=== PATIENT | female | born 1985 | race Caucasian/White ===

== ENCOUNTER 2024-06-26 09:14 | Inpatient (IN) | payer OTHER ==
[2024-06-26] MEDS: SODIUM CHLORIDE 0.9% 500 ML INFUS.BAG IV ONE (09:50)
[2024-06-26] MEDS ORDERED: ACETAMINOPHEN INJECTION 100 ML ONE ×2 (09:56→18:57)
[2024-06-26] MEDS: ACETAMINOPHEN 1000 MG/100 ML BAG IVPB ONE ×2 (09:59→19:04)
[2024-06-26 10:09] LABS: INR 1.05 (0.83-1.09); PROTHROMBIN TIME (PATIENT) 11.9 SEC (9.7-13.0)
[2024-06-26 10:11] LABS: ACTIVATED PTT 26.8 SECONDS (25.2-36.5)
[2024-06-26 10:22] LABS: HEMATOCRIT 38.5 % (32.4-45.2); HEMOGLOBIN 12.7 G/dL (10.7-15.3); MCH 29.9 pg (25.7-33.7); MCHC 32.9 g/dl (32.0-36.0); MEAN CELL VOLUME 90.7 fl (80-96); RBC 4.24 10^6/uL (3.60-5.2)
[2024-06-26 10:29] LABS: ALBUMIN 3.8 g/dl (3.4-5.0); BILIRUBIN,TOTAL 0.6 mg/dl (0.2-1); CALCIUM 9.2 mg/dl (8.5-10.1); CREATININE 0.7 mg/dl (0.6-1.3); POTASSIUM 3.5 mmol/L (3.5-5.1); TOT PROT 6.7 g/dl (6.4-8.2)
[2024-06-26 10:40] LABS: PLATELET ESTIMATE ADEQUATE
[2024-06-26 13:16] LABS: HEMATOCRIT 36.7 % (32.4-45.2); MCH 29.7 pg (25.7-33.7); MCHC 32.7 g/dl (32.0-36.0); MEAN CELL VOLUME 90.9 fl (80-96); MEAN PLT VOLUME 7.7 fl (7.5-11.1); PLATELET COUNT 205.6 10^3/uL (134-434); RBC 4.04 10^6/uL (3.60-5.2); RDW 13.6 % (11.6-15.6); WHITE BLOOD COUNT 11.2 10^3/uL (4.0-10.8)
[2024-06-26] MEDS: RHO(D) IMMUNE GLOBULIN 1,500 UNIT DISP.SYRIN IM ONE (14:34)
[2024-06-26] MEDS ORDERED: BUPIVACAINE HCL/PF 0.5% (5MG/ML) 10 ML VIAL ONE (15:16)
[2024-06-26] MEDS ORDERED: MIDAZOLAM HCL 2 MG/2 ML SINGLE DOSE VIAL ONE (16:30)
[2024-06-26] MEDS ORDERED: ROCURONIUM BROMIDE 50 MG/5 ML SYRINGE ONE (16:30)
[2024-06-26] MEDS ORDERED: PROPOFOL 20 ML ONE (16:30)
[2024-06-26] MEDS ORDERED: SUCCINYLCHOLINE CHLORIDE 200 MG/10 ML SYRINGE ONE (16:30)
[2024-06-26] MEDS ORDERED: LIDOCAINE HCL/PF 2% SDV 5ML VIAL ONE (16:30)
[2024-06-26] MEDS ORDERED: DEXAMETHASONE SOD PHOSPHATE 4 MG/1 ML VIAL ONE (17:22)
[2024-06-26] MEDS ORDERED: ceFAZolin SODIUM 1 GM VIAL ONE (17:22)
[2024-06-26] MEDS: BUPIVACAINE HCL/PF 0.5% (5MG/ML) 10 ML VIAL IJ ONE (18:09)
[2024-06-26] MEDS ORDERED: KETOROLAC TROMETHAMINE 30 MG/1 ML VIAL ONE (18:33)
[2024-06-26] MEDS ORDERED: ONDANSETRON 4 MG/2 ML VIAL IVPUSH PRN (18:35)
[2024-06-26] MEDS ORDERED: PROMETHAZINE HCL 25 MG/1 ML VIAL IVPB PRN (18:35)
[2024-06-26] MEDS ORDERED: LACTATED RINGERS SOLUTION 1,000 ML IV SCH (18:45)
[2024-06-26] MEDS ORDERED: IBUPROFEN 400 MG TABLET (FP) PO PRN (19:23)
[2024-06-26] MEDS ORDERED: ACETAMINOPHEN 325 MG TABLET (FP) PO PRN (19:23)
[2024-06-26 20:43] LABS: HEMATOCRIT 36.3 % (32.4-45.2); HEMOGLOBIN 12.1 GM/dL (10.7-15.3); MCH 30.4 pg (25.7-33.7); MCHC 33.4 g/dl (32.0-36.0); MEAN PLT VOLUME 8.1 fl (7.5-11.1); PLATELET COUNT 204 10^3/uL (134-434); RBC 3.99 M/mm3 (3.60-5.2); RDW 13.7 % (11.6-15.6); WHITE BLOOD COUNT 10.9 K/mm3 (4.0-10.0)
[2024-06-26 21:31] VITALS: BP 109/70; PULSE 60; RESP 18; TEMP 97.9; BMI 23.3
== END 2024-06-26 22:10 | disposition home or self-care (01) | DRG 545 ==
LOC: SUPCPDRO 09:14 → JER 09:14 → FER 09:14 → JERBED 17:38 → J5S 21:05
PROVIDERS: ADMIT Obstetrics & Gynecology; ATTEND Obstetrics & Gynecology
PROC: 0UN94ZZ Release Uterus, Percutaneous Endoscopic Approach (ICD-10-PCS; 2024-06-26)
PROC: 0W9G3ZZ Drainage of Peritoneal Cavity, Percutaneous Approach (ICD-10-PCS; 2024-06-26)
PROC: 10T24ZZ Resection of Products of Conception, Ectopic, Percutaneous Endoscopic Approach (ICD-10-PCS; principal; 2024-06-26 18:00)
DX: O00.101 Right tubal pregnancy without intrauterine pregnancy (principal); K66.1 Hemoperitoneum; K66.0 Peritoneal adhesions (postprocedural) (postinfection)
CPT/HCPCS: 36415; 76817-TC; 80053; 81003; 84702; 85027; 85610; 85730; 86850; 86900; 86901; 87086; 88305-TC; 93005; 94760; 96372; 99285-25; J0131; J2790

== ENCOUNTER 2024-12-26 16:40 | Day surgery (SDC) | payer OTHER ==
[2024-12-26 16:47] VITALS: BMI 22.6
[2024-12-26 17:06] LABS: BASO % 0.5 % (0-2.0); EOS % 3.2 % (0-4.5); HEMOGLOBIN 12.9 GM/dL (10.7-15.3); LYMPH % 22.7 % (8-40); MCH 30.5 pg (25.7-33.7); MCHC 34.1 g/dl (32.0-36.0); MEAN CELL VOLUME 89.5 fl (80-96); MEAN PLT VOLUME 7.2 fl (7.5-11.1); MONO % 6.3 % (3.8-10.2); NEUT % 67.3 % (42.8-82.8); PLATELET COUNT 280 10^3/uL (134-434); RBC 4.24 M/mm3 (3.60-5.2); RDW 14.1 % (11.6-15.6); WHITE BLOOD COUNT 7.8 K/mm3 (4.0-10.0)
[2024-12-26 17:15] LABS: INR 1.03 (0.83-1.09); PROTHROMBIN TIME (PATIENT) 11.3 SEC (9.7-13.0)
[2024-12-26 17:17] LABS: ACTIVATED PTT 27.8 SECONDS (25.2-36.5)
[2024-12-26] MEDS ORDERED: PROPOFOL 20 ML ONE ×2 (17:24→20:44)
[2024-12-26] MEDS ORDERED: MIDAZOLAM HCL 2 MG/2 ML SINGLE DOSE VIAL ONE (17:24)
[2024-12-26] MEDS ORDERED: SUCCINYLCHOLINE CHLORIDE 200 MG/10 ML SYRINGE ONE (17:27)
[2024-12-26 18:34] LABS: ALBUMIN 3.6 g/dl (3.4-5.0); BILIRUBIN,TOTAL 0.3 mg/dL (0.2-1); BLOOD UREA NITROGEN 12.3 mg/dL (7-18); CALCIUM 9.3 mg/dL (8.5-10.1); CREATININE 0.7 mg/dL (0.55-1.3); POTASSIUM 3.9 mmol/L (3.5-5.1); TOT PROT 7.4 g/dl (6.4-8.2)
[2024-12-26] MEDS ORDERED: ceFAZolin SODIUM 1 GM VIAL ONE (19:46)
[2024-12-26] MEDS ORDERED: ONDANSETRON 4 MG/2 ML VIAL ONE (19:46)
[2024-12-26] MEDS ORDERED: DEXAMETHASONE SOD PHOSPHATE 4 MG/1 ML VIAL ONE (19:46)
[2024-12-26] MEDS ORDERED: ROCURONIUM BROMIDE 50 MG/5 ML SYRINGE ONE (19:47)
[2024-12-26] MEDS: ceFAZolin SODIUM 1 GM VIAL IVPB ONE (19:49)
[2024-12-26] MEDS ORDERED: SUGAMMADEX SODIUM 200 MG/2 ML VIAL ONE (20:15)
[2024-12-26] MEDS ORDERED: ONDANSETRON 4 MG/2 ML VIAL IVPUSH PRN (20:54)
[2024-12-26] MEDS: ACETAMINOPHEN 1000 MG/100 ML BAG IVPB ONE (21:23)
[2024-12-26] MEDS: LACTATED RINGERS SOLUTION 1,000 ML IV SCH (21:24)
[2024-12-26 21:51] VITALS: RESP 17
[2024-12-26] MEDS: oxyCODONE HCL 5 MG TABLET PO ONE (22:52)
[2024-12-26 23:04] VITALS: TEMP 98
[2024-12-26 23:05] VITALS: BP 103/67; PULSE 66
== END 2024-12-26 23:09 | disposition home or self-care (01) ==
LOC: JER 16:40 → JASUSAT 19:34 → JER 19:34 → J8W 22:44 → JASUSAT 23:09
PROVIDERS: ATTEND Physician Assistant Surgical
PROC: 0UT64ZZ Resection of Left Fallopian Tube, Percutaneous Endoscopic Approach (ICD-10-PCS; 2024-12-26)
PROC: 10T24ZZ Resection of Products of Conception, Ectopic, Percutaneous Endoscopic Approach (ICD-10-PCS; principal; 2024-12-26 19:00)
DX: O00.102 Left tubal pregnancy without intrauterine pregnancy (principal); N83.292 Other ovarian cyst, left side
CPT/HCPCS: 36415; 80053; 85025; 85610; 85730; 86850; 86900; 86901; 88305-TC; 93005; 93010; 94760; 96372; 99284-25; J0131; J2790